=== PATIENT | male | born 1985 | race African-American/Black ===

== ENCOUNTER 2021-07-20 22:56 | Inpatient (IN) | payer MEDICAID, SELFPAY ==
[~2021-07-20] VITALS: Ht 188 cm; Wt 163.3 kg
[2021-07-20 23:07] VITALS: BP 202/102
--- NOTE | 2021-07-20 23:11 | NUR ---
TO BED VIA WHEELCHAIR
--- NOTE | 2021-07-20 23:31 | NUR ---
PT TAKEN TO BED 1 VIA W/C
--- NOTE | 2021-07-20 23:35 | NUR ---
EDGARDO AT BEDSIDE. 36 YO M BIB SELF WITH CHIEF COMPLAINT OF WHEEZING, VOMITING X4DAYS. SOB LAST NIGHT. PT STATED HE SAW BLOOD STREAKS IN EMESIS AND HIS PRIMARY HAD HIM STOP ALL BLOOD THINNERS. REPORT PAIN 10/10 IN WHOLE BODY DUE TO SICKLE CELL DISEASE. PT IS IN W/C, REFUSES TO BE IN BED. REPORTED THAT HE TAKES 4MG OF DILAUDID Q2HRS FOR PAIN, 50MG OF BENADRYL. HX: PE 2 MONTHS AGO WAS ALSO INTUBATED, DKA AND SICKLE CELL ALLERG:MORPHINE, ZOFRAN, PROCHLOPERAZINE
--- NOTE | 2021-07-20 23:45 | NUR ---
Note willy in EDM - 07/21/21 at 0033 by [facility] Patient discharged with v/s stable. Written and verbal after care instructions given and explained. Patient verbalized understanding. Ambulatory with steady gait. All questions addressed prior to discharge. Advised to follow up with PMD.
[2021-07-20] MEDS ORDERED: PANTOPRAZOLE 40 MG INJ VIAL IVP ONE (23:55)
[2021-07-20] MEDS ORDERED: NACL 0.9% 2,000 ML IV ONE (23:55)
[2021-07-20] MEDS ORDERED: HYDROmorphone PFS 2 MG/ML SYR IVP ONE (23:55)
[2021-07-21] MEDS ORDERED: CEFEPIME 1,000 MG in DEXTROSE 5% 50 ML IV ONE (00:15)
[2021-07-21] MEDS ORDERED: PROCHLORPERAZINE 10 MG/2 ML VIAL IVP ONE (00:15)
[2021-07-21] MEDS ORDERED: VANCOMYCIN 1,000 MG in DEXTROSE 5% 250 ML IV ONE (00:15)
[2021-07-21] MEDS ORDERED: diphenhydrAMINE 50 MG/ML VIAL IVP ONE (00:15)
[2021-07-21 00:27] LABS: BASOPHILS % (AUTO) 0.6 % (0.0-2.0); EOSINOPHILS # (AUTO) 0.1 K/uL (0-0.4); EOSINOPHILS % (AUTO) 1.7 % (0.0-4.0); HEMATOCRIT 29.8 % (36-52); HEMOGLOBIN 9.4 g/dL (12.0-18.0); LYMPHOCYTES # (AUTO) 1.1 K/uL (2.0-11.5); LYMPHOCYTES % (AUTO) 20.2 % (20.5-51.1); MEAN CORPUSCULAR HEMOGLOBIN 26 pg (27-31); MEAN CORPUSCULAR HGB CONC 32 g/dL (33-37); MEAN CORPUSCULAR VOLUME 81.6 fL (80-94); MONOCYTES # (AUTO) 0.3 K/uL (0.8-1.0); MONOCYTES % (AUTO) 6.1 % (1.7-9.3); NEUTROPHILS # (AUTO) 3.7 K/uL (1.8-7.7); NEUTROPHILS % (AUTO) 71.4 % (42.2-75.2); PLATELET COUNT (AUTO) 214 K/uL (140-450); RED BLOOD CELL COUNT(AUTO) 3.65 MIL/uL (4.20-6.10); RED CELL DISTRIBUTION WIDTH 19.1 % (11.6-13.7); WHITE BLOOD COUNT (AUTO) 5.2 K/uL (4.8-10.8)
[2021-07-21] MEDS ORDERED: ALBUTEROL SULFATE/IPRATROPIU 3 ML SOL IH ONE (00:30)
[2021-07-21] MEDS ORDERED: DEXAMETHASONE 10 MG/ML VIAL IVP ONE (00:30)
--- NOTE | 2021-07-21 00:32 | NUR ---
PT IS SITTINP IN W/C WATCHING MUSIC VIDEOS ON HIS CELL PHONE AND SINGING. PT REFUSED BREATHING TX OFFERED BY RT GREG. STATED "I DONT NEED THAT, LET ME TRY THE DECADRONE FIRST".
[2021-07-21 00:48] LABS: ALBUMIN 3.5 g/dL (3.4-5.0); AMYLASE 36 U/L (25-115); ANION GAP 12.8 (8-16); ASPARTATE AMINOTRANSFERASE 29 U/L (15-37); CHLORIDE 102 mmol/L (98-107); GFR ARICAN-AMERICAN 109 mL/min (>90); GLUCOSE 347 mg/dL (74-106); LIPASE 85 U/L (73-393); POTASSIUM 3.8 mmol/L (3.5-5.1); SODIUM SERUM 141 mmol/L (136-145); TOTAL BILIRUBIN 0.7 mg/dL (0.0-1.0); UREA NITROGEN, BLOOD 14 mg/dL (7-18)
[2021-07-21] MEDS ORDERED: CEFEPIME 1,000 MG VIAL ONE (00:54)
[2021-07-21 00:55] LABS: PROTHROMBIN TIME 10.3 secs (10.8-13.4)
[2021-07-21 00:56] LABS: ACETONE, SERUM NEGATIVE (NEGATIVE)
--- NOTE | 2021-07-21 01:40 | NUR ---
AK STATED FIRST DOSE OF DILUADID DIDNT WORK "2MG IS NOTHING, I NEED 4MG Q2HRS". REPORTED TO EDGARDO SCHWARTZ.
[2021-07-21] MEDS ORDERED: HYDROmorphone PFS 2 MG/ML SYR IVP ONE (01:45)
[2021-07-21 01:58] LABS: APPEARANCE,URINE CLEAR (CLEAR); BILIRUBIN,URINE NEGATIVE (NEGATIVE); BLOOD, URINE NEGATIVE (NEGATIVE); COLOR,URINE YELLOW (YELLOW); LEUKOCYTE ESTERASE ,URINE NEGATIVE (NEGATIVE); NITRITE, URINE NEGATIVE (NEGATIVE); UGLUCOSE 3+ (NEGATIVE)
[2021-07-21] MEDS ORDERED: VANCOMYCIN 1,000 MG VIAL ONE (02:01)
[2021-07-21] MEDS ORDERED: INSULIN REGULAR, HUMAN 100 UNIT/ML VIAL SUBQ ONE (02:20)
--- NOTE | 2021-07-21 02:45 | NUR ---
LAB WANTED TO DRAW BLOOD, ASKED IF SHE COULD WAIT FOR AFTER HIS PAIN MEDS. PT ASKED FOR BENDRYL 50MG FOR NAUSEA. TOLD PT I WOULD PAGE THE DOCTOR. PT BECAME UPSET AND STATED EVERYTIME I ASK YOU FIRST SOMETHING THERE IS A DELAY. EXPLAINED TO PT I AM TRYING MY BEST TO GET HIM WHAT HE NEEDS, BUT I ALSO HAVE A CRITICAL PT THAT REQUIRES CLOSE ATTENTION. PT LAUGHED AND PUT HIS HEAD DOWN. ASKED PT IF THERE WAS ANYTHING I COULD HELP WITH, PT NO LONGER ANSWERED ME. I ASKED THE PT IF HE WANTED TO TRY A DIFFERENT NURSE, PT SAID YEAH. TOLD MIGDALIA SNYDER, RESUMED CARE.
[2021-07-21] MEDS ORDERED: INSULIN LANTUS 100 UNITS/ML 10 ML VIAL SUBQ ONE (02:55)
--- NOTE | 2021-07-21 04:48 | NUR ---
WAS PAGED FOR MORE DILAUDID FOR 8/10 PAIN AND BENADRYL 50MG.
--- NOTE | 2021-07-21 05:10 | NUR ---
PT SAW ME WALKING BY AND ASKED ME TO PAGE AGAIN. TOLD PT HAS ALREADY BEEN NOTIFIED, WE ARE WAITING FOR A RESPONSE. PT BECAME ANGRY AND SAID SO WHAT I JUST SIT HERE IN PAIN, I TOLD PT I WILL GO AHEAD AND CALL , PT SAID DO IT IN FRONT OF ME, TOLD PT I WILL GO AHEAD AND CALL AT THE NURSES STATION. PT ROLLED EYES. Addendum: 07/21/21 at 0815 by [facility] PT SAW ME WALKING BY AND ASKED ME TO PAGE AGAIN. TOLD PT HAS ALREADY BEEN NOTIFIED, WE ARE WAITING FOR A RESPONSE. PT BECAME ANGRY AND SAID SO WHAT I JUST SIT HERE IN PAIN, I TOLD PT I WILL GO AHEAD AND CALL , PT SAID DO IT IN FRONT OF ME, TOLD PT I WILL GO AHEAD AND CALL AT THE NURSES STATION. PT ROLLED EYES. PT STATED IF HE'S NOT GETTING HIS PAIN MEDICATION THEN WHAT IS HE DOING HERE. ASKED IF CAN DISCHARGE HIM AND IF THE HOUSE SUP CAN GET HIM TRANSPORTATION TO HIS AUNTS HOUSE IN [place]. EXPLAINED TO PT HE IS ADMITTED AND IF HE WANTS TO LEAVE THAT IS AGAINST MEDICAL ADVICE AND THAT I WOULD TALK TO
--- NOTE | 2021-07-21 05:14 | NUR ---
PAGED DR. HICKS FOR PAIN MEDS, PT REPORTED PAIN 06/20. ORDERED MORPHINE 4MG IVP ONCE FOR PAIN.
--- NOTE | 2021-07-21 05:14 | NUR ---
UPDATED ON MORPHINE ALLERGY. NOTIFIED THAT PT WANTS HIS PAIN MEDS OR HE WILL LEAVE. STATED THATS OK.
--- NOTE | 2021-07-21 05:30 | NUR ---
HOUSE SUPERVISIOR NAN AND CHARGE NURSE CLAUDIO AT BEDSIDE EXPLAINING TO PT ABOUT LEAVING AGAIN MEDICAL ADVICE.
[2021-07-21 05:45] VITALS: BP 123/69
--- NOTE | 2021-07-21 05:45 | NUR ---
Note [email or web address] in EDM - 07/21/21 at 0822 by MED Patient does not wish to proceed with medical care recommended by . Patient given information related to possible complications, up to and including , which could occur as a result of leaving hospital at this time. Patient verbalizes understanding of risks involved leaving against medical advice. Patient DID NOT signed AMA form.
--- NOTE | 2021-07-21 05:45 | NUR ---
PT LEFT VIA W/C WITHOUT SIGNING AMA.
--- NOTE | 2021-07-21 05:45 | NUR ---
PATIENT ELOPED FROM FACILITY. DISCHARGE INSTRUCTIONS NOT GIVEN TO PATIENT. DR. HICKS NOTIFIED.
== END 2021-07-21 05:45 | disposition left against medical advice (07) | DRG 253 ==
LOC: MED 22:56 → MMU 07-21 03:56
PROVIDERS: ADMIT Family Medicine; ATTEND Family Medicine
DX: K92.2 Gastrointestinal hemorrhage, unspecified (principal); D57.00 Hb-SS disease with crisis, unspecified; E11.9 Type 2 diabetes mellitus without complications; I25.10 Atherosclerotic heart disease of native coronary artery without angina pectoris; I10 Essential (primary) hypertension; Z88.5 Allergy status to narcotic agent; Z88.8 Allergy status to other drugs, medicaments and biological substances; Z86.711 Personal history of pulmonary embolism; Z20.822 Contact with and (suspected) exposure to COVID-19
CPT/HCPCS: 36415; 71045; 80053; 81003; 82009; 82150; 83605; 83690; 84484; 85025; 85610; 85730; 86886; 86900; 86901; 87040; 96365; 96367; 96372; 96375; 96376; 99285; C9113; J0692; J0780; J1100; J1170; J1200; J1815; J3370; Q0092; U0003